=== PATIENT | female | born 1955 | race African-American/Black ===

== ENCOUNTER 2020-05-27 07:00 | Day surgery (SDC) | payer MEDICARE ==
[~2020-05-27] VITALS: Ht 149.9 cm; Wt 56.6 kg
[2020-05-27 07:33] VITALS: BP 93/60
[2020-05-27] MEDS ORDERED: ATOR20TA37 PO (07:37)
[2020-05-27] MEDS ORDERED: CLOP75TA PO (07:37)
[2020-05-27] MEDS ORDERED: ASPI81TA45 PO (07:37)
[2020-05-27] MEDS ORDERED: HYDR25TA6 PO (07:37)
[2020-05-27] MEDS ORDERED: LISI-170 PO (07:37)
[2020-05-27 08:06] LABS: BASOPHILS % (AUTO) 1 % (0-1); EOSINOPHILS % (AUTO) 2 % (1-7); LYMPHOCYTES % (AUTO) 30 % (22-44); MEAN CORPUSCULAR HEMOGLOBIN 30.8 pg (27.0-34.8); MEAN CORPUSCULAR HGB CONC 32.9 g/dL (32.4-35.8); MEAN PLATELET VOLUME 7.8 fL (7.4-10.4); MONOCYTES % (AUTO) 6 % (2-9); NEUTROPHILS % (AUTO) 62 % (42-75); PLATELET COUNT 302 x10^3/uL (130-400); RED BLOOD COUNT 4.35 x10^6/uL (3.82-5.3); RED CELL DISTRIBUTION WIDTH 14.6 % (9.6-15.2)
[2020-05-27 08:08] LABS: MD NO
[2020-05-27 08:15] LABS: ALBUMIN 3.9 g/dL (3.4-5.0); ANION GAP 7 mmol/L (5-15); CALCIUM 8.8 mg/dL (8.5-10.1); CHLORIDE 109 mmol/L (98-107)
[2020-05-27 08:20] LABS: ALANINE AMINOTRANSFERASE 25 U/L (12-78); ALKALINE PHOSPHATASE 65 U/L (45-117); BILIRUBIN,TOTAL 0.4 mg/dL (0.2-1.0); CREATININE 1.21 mg/dL (0.55-1.02); TOTAL PROTEIN 7.6 g/dL (6.4-8.2)
[2020-05-27] MEDS ORDERED: FENTANYL PF 100 MCG/2ML ONE ×2 (08:42→08:43)
[2020-05-27] MEDS ORDERED: NALOXONE 1 MG/ML, 2ML ONE (08:43)
[2020-05-27] MEDS ORDERED: MIDAZOLAM 1 MG/ML, 5ML ONE (08:43)
[2020-05-27] MEDS ORDERED: PROTAMINE SULFATE 10 MG/ML, 25ML ONE (08:43)
[2020-05-27] MEDS ORDERED: FLUMAZENIL 0.1 MG/1 ML, 5ML ONE (08:43)
[2020-05-27] MEDS ORDERED: LIDOCAINE 1%, 10ML ONE (08:43)
[2020-05-27] MEDS ORDERED: HEPARIN 1,000 UNITS/ML, 10ML ONE (08:43)
[2020-05-27] MEDS ORDERED: VISIPAQUE 270 MG/ML, 50ML BOTTLE ONE (10:00)
== END 2020-05-27 11:40 | disposition home or self-care (01) ==
LOC: OUT 07:00
PROVIDERS: ATTEND Surgery
DX: I70.211 Atherosclerosis of native arteries of extremities with intermittent claudication, right leg (principal); F32.9 Major depressive disorder, single episode, unspecified; F41.9 Anxiety disorder, unspecified; I10 Essential (primary) hypertension; Z98.51 Tubal ligation status; Z98.890 Other specified postprocedural states; F17.210 Nicotine dependence, cigarettes, uncomplicated; Z79.82 Long term (current) use of aspirin; Z79.899 Other long term (current) drug therapy
CPT/HCPCS: 36246; 36415; 75625; 75716; 80053; 85025; 99156; 99157; C1751; C1760; C1769; C1894; J2250; J3010; Q9966; 75710; 76937; J1644; J2720; J2310

== ENCOUNTER → 2020-07-16 | Outpatient (CLI) | payer MEDICARE ==
[~2020-07-16] MED LIST: ASPI81TA45 PO; ATOR20TA37 PO; CLOP75TA PO; HYDR25TA6 PO; LISI-170 PO; NAPR-872 PO
[2020-07-16 16:22] LABS: BASOPHILS % (AUTO) 1 % (0-1); EOSINOPHILS % (AUTO) 2 % (1-7); LYMPHOCYTES % (AUTO) 37 % (22-44); MEAN CORPUSCULAR HEMOGLOBIN 31.1 pg (27.0-34.8); MEAN CORPUSCULAR HGB CONC 33.4 g/dL (32.4-35.8); MEAN PLATELET VOLUME 8.1 fL (7.4-10.4); MONOCYTES % (AUTO) 7 % (2-9); NEUTROPHILS % (AUTO) 53 % (42-75); PLATELET COUNT 282 x10^3/uL (130-400); RED BLOOD COUNT 4.25 x10^6/uL (3.82-5.3)
[2020-07-16 16:29] LABS: ALBUMIN 3.8 g/dL (3.4-5.0); ANION GAP 6 mmol/L (5-15); CALCIUM 8.9 mg/dL (8.5-10.1); CHLORIDE 109 mmol/L (98-107); MD NO
[2020-07-16 16:32] LABS: ALANINE AMINOTRANSFERASE 36 U/L (12-78); ALKALINE PHOSPHATASE 59 U/L (45-117); BILIRUBIN,TOTAL 0.2 mg/dL (0.2-1.0); CREATININE 0.95 mg/dL (0.55-1.02); TOTAL PROTEIN 7.5 g/dL (6.4-8.2)
== END | disposition home or self-care (01) ==
LOC: STAR 14:56
PROVIDERS: ATTEND Surgery
DX: Z01.818 Encounter for other preprocedural examination (principal); M41.85 Other forms of scoliosis, thoracolumbar region; Z20.822 Contact with and (suspected) exposure to COVID-19
CPT/HCPCS: 36415; 71046; 80053; 85025; 93005; U0003

== ENCOUNTER 2020-07-22 05:21 | Inpatient (IN) | payer MEDICARE ==
[~2020-07-22] VITALS: Ht 149.9 cm; Wt 61.2 kg
[2020-07-22] MEDS ORDERED: LACTATED RINGERS 1,000 ML IV SCH (06:00)
[2020-07-22] MEDS ORDERED: CHLORHEXIDINE 15 ML UDC PO ONE (06:00)
[2020-07-22 06:01] VITALS: BP 103/63
[2020-07-22] MEDS ORDERED: BUPIVACAINE/PF 0.5% ONE (06:59)
[2020-07-22] MEDS ORDERED: THROMBIN 20,000 UNIT VIAL TP ONE (06:59)
[2020-07-22] MEDS ORDERED: EPINEPHRINE 1 MG/ML, 1ML ONE (06:59)
[2020-07-22] MEDS ORDERED: PROTAMINE SULFATE 10 MG/ML, 25ML ONE (06:59)
[2020-07-22] MEDS ORDERED: HEPARIN 1,000 UNITS/ML, 30ML ONE (07:14)
[2020-07-22] MEDS ORDERED: MIDAZOLAM 1 MG/ML, 2ML ONE (07:34)
[2020-07-22] MEDS ORDERED: FENTANYL PF 250 MCG/5ML ONE (07:34)
[2020-07-22] MEDS ORDERED: PHENYLEPHRINE 10 MG/ML ONE (07:38)
[2020-07-22] MEDS ORDERED: ASPIRIN 81 MG TABLET EC PO ONE (08:00)
[2020-07-22] MEDS ORDERED: HEPARIN 1,000 UNITS/ML, 30ML IVPush ONE (08:12)
[2020-07-22] MEDS ORDERED: ACETAMINOPHEN 325 MG TABLET PO PRN (08:30)
[2020-07-22] MEDS ORDERED: OXYcodone 5 MG/5 ML ORAL.SOL UDC PO PRN (08:30)
[2020-07-22] MEDS ORDERED: METHOCARBAMOL 1,000 MG in DEXTROSE 5% 100 ML IV PRN (08:30)
[2020-07-22] MEDS ORDERED: HYDROmorphone 1 MG/ML, 1ML INJ IVPush PRN (08:30)
[2020-07-22] MEDS ORDERED: LABETALOL 5MG/ML, 20ML IV PRN (08:30)
[2020-07-22] MEDS ORDERED: ONDANSETRON 2MG/ML, 2ML IVPush PRN (08:30)
[2020-07-22] MEDS ORDERED: ALBUTEROL SULFATE 2.5 MG/3 ML NPPB PRN (08:30)
[2020-07-22] MEDS ORDERED: PROMETHAZINE 25 MG/ML, 1ML IVPush PRN (08:30)
[2020-07-22] MEDS ORDERED: hydrALAzine 20 MG/ML, 1ML IV PRN (08:30)
[2020-07-22] MEDS ORDERED: LORazepam 2 MG/ML, 1ML IVPush PRN (08:30)
[2020-07-22] MEDS ORDERED: PROMETHAZINE 25 MG SUPP PR PRN (08:30)
[2020-07-22] MEDS ORDERED: SUCCINYLCHOLINE 20 MG/ML, 10ML ONE (09:36)
[2020-07-22] MEDS ORDERED: NEOSTIGMINE 1 MG/ML, 10ML ONE (09:36)
[2020-07-22] MEDS ORDERED: ONDANSETRON 2MG/ML, 2ML ONE (09:36)
[2020-07-22] MEDS ORDERED: ROCURONIUM 10MG/ML,5ML ONE (09:36)
[2020-07-22] MEDS ORDERED: GLYCOPYRROLATE 0.2MG/1ML, 5ML ONE (09:36)
[2020-07-22] MEDS ORDERED: CEFAZOLIN 1,000 MG ONE (09:36)
[2020-07-22] MEDS ORDERED: PROPOFOL 10 MG/ML, 20ML ONE (09:36)
[2020-07-22] MEDS ORDERED: DEXAMETHASONE 4 MG/ML, 1ML ONE (09:36)
[2020-07-22] MEDS ORDERED: FENTANYL PF 100 MCG/2ML ONE ×2 (09:36→10:56)
[2020-07-22] MEDS ORDERED: LABETALOL 5MG/ML, 20ML ONE (10:35)
[2020-07-22] MEDS ORDERED: OXYcodone 5 MG/5 ML ORAL.SOL UDC ONE (10:56)
[2020-07-22] MEDS: FENTANYL PF 100 MCG/2ML IV PRN ×2 (10:58→11:06)
[2020-07-22] MEDS: morphine SULFATE 10 MG/ML, 1ML IV PRN (13:28)
[2020-07-22] MEDS ORDERED: ONDANSETRON 2MG/ML, 2ML IV PRN (13:30)
[2020-07-22 14:30] VITALS: BP 147/77
[2020-07-22] MEDS: HYDROcodone/APAP 5/325 TABLET PO PRN ×3 (15:44→20:19)
[2020-07-22] MEDS: NICOTINE 14MG/24 HR PATCH.TD24 TD SCH (20:19)
[2020-07-22] MEDS: LACTATED RINGERS 1,000 ML IV SCH (20:19)
[2020-07-22] MEDS: ATORVASTATIN 40 MG TABLET PO SCH (20:19)
[2020-07-22] MEDS: SODIUM CHLORIDE FLUSH 10ML SYR IVF SCH (20:23)
[2020-07-22 20:41] VITALS: BP 124/54
[2020-07-23] MEDS: morphine SULFATE 10 MG/ML, 1ML IV PRN ×2 (01:19→06:45)
[2020-07-23] MEDS: HYDROcodone/APAP 5/325 TABLET PO PRN ×5 (01:19→20:04)
[2020-07-23 01:25] VITALS: BP 112/66
[2020-07-23 04:38] VITALS: BP 132/73
[2020-07-23] MEDS: HEPARIN 5,000 UNITS/ML, 1ML SQ SCH ×3 (05:29→22:12)
[2020-07-23] MEDS: LACTATED RINGERS 1,000 ML IV SCH (05:32)
[2020-07-23 07:32] VITALS: BP 102/59
[2020-07-23] MEDS: NAPROXEN 250 MG TABLET PO SCH (09:30)
[2020-07-23] MEDS: CLOPIDOGREL 75 MG TABLET PO SCH (09:30)
[2020-07-23] MEDS: ASPIRIN 81 MG TABLET CHEW PO SCH (09:30)
[2020-07-23] MEDS: SODIUM CHLORIDE FLUSH 10ML SYR IVF SCH ×2 (09:31→20:04)
[2020-07-23] MEDS: LISINOPRIL 20 MG TABLET PO SCH (09:31)
[2020-07-23] MEDS: HYDROCHLOROTHIAZIDE 25 MG TABLET PO SCH (09:32)
[2020-07-23 09:38] VITALS: BP 125/61
[2020-07-23 09:53] LABS: BASOPHILS % (AUTO) 1 % (0-1); EOSINOPHILS % (AUTO) 1 % (1-7); LYMPHOCYTES % (AUTO) 14 % (22-44); MEAN CORPUSCULAR HEMOGLOBIN 30.3 pg (27.0-34.8); MEAN CORPUSCULAR HGB CONC 32.7 g/dL (32.4-35.8); MEAN PLATELET VOLUME 7.8 fL (7.4-10.4); MONOCYTES % (AUTO) 8 % (2-9); NEUTROPHILS % (AUTO) 77 % (42-75); PLATELET COUNT 242 x10^3/uL (130-400)
[2020-07-23 10:04] LABS: ALBUMIN 3.2 g/dL (3.4-5.0); ANION GAP 4 mmol/L (5-15); CALCIUM 9.1 mg/dL (8.5-10.1); CHLORIDE 112 mmol/L (98-107); CREATININE 0.86 mg/dL (0.55-1.02)
[2020-07-23 10:07] LABS: MD SCAN
[2020-07-23 14:44] VITALS: BP 102/66
[2020-07-23] MEDS: ATORVASTATIN 40 MG TABLET PO SCH (20:03)
[2020-07-23] MEDS: NICOTINE 14MG/24 HR PATCH.TD24 TD SCH (20:04)
[2020-07-23 20:18] VITALS: BP 116/68
[2020-07-24] MEDS: HYDROcodone/APAP 5/325 TABLET PO PRN ×5 (00:32→19:09)
[2020-07-24 00:35] VITALS: BP 118/71
[2020-07-24 05:34] LABS: BASOPHILS % (AUTO) 1 % (0-1); EOSINOPHILS % (AUTO) 1 % (1-7); LYMPHOCYTES % (AUTO) 20 % (22-44); MEAN CORPUSCULAR HEMOGLOBIN 30.2 pg (27.0-34.8); MEAN CORPUSCULAR HGB CONC 32.3 g/dL (32.4-35.8); MEAN PLATELET VOLUME 8.2 fL (7.4-10.4); MONOCYTES % (AUTO) 8 % (2-9); NEUTROPHILS % (AUTO) 71 % (42-75); PLATELET COUNT 234 x10^3/uL (130-400); RED BLOOD COUNT 3.43 x10^6/uL (3.82-5.3); RED CELL DISTRIBUTION WIDTH 15.3 % (9.6-15.2)
[2020-07-24 05:35] LABS: MD NO
[2020-07-24] MEDS: HEPARIN 5,000 UNITS/ML, 1ML SQ SCH ×3 (05:44→21:18)
[2020-07-24] MEDS: morphine SULFATE 10 MG/ML, 1ML IV PRN ×4 (06:20→21:19)
[2020-07-24] MEDS: LISINOPRIL 20 MG TABLET PO SCH (08:08)
[2020-07-24] MEDS: ASPIRIN 81 MG TABLET CHEW PO SCH (08:08)
[2020-07-24] MEDS: CLOPIDOGREL 75 MG TABLET PO SCH (08:08)
[2020-07-24] MEDS: HYDROCHLOROTHIAZIDE 25 MG TABLET PO SCH (08:08)
[2020-07-24] MEDS: NAPROXEN 250 MG TABLET PO SCH (08:08)
[2020-07-24] MEDS: SODIUM CHLORIDE FLUSH 10ML SYR IVF SCH ×2 (08:09→21:18)
[2020-07-24 08:18] VITALS: BP 105/65
[2020-07-24 12:07] VITALS: BP 112/65
[2020-07-24] MEDS ORDERED: BISACODYL 10 MG SUPP PR PRN (12:30)
[2020-07-24] MEDS: DOCUSATE 100 MG CAPSULE PO SCH (13:01)
[2020-07-24 19:13] VITALS: BP 95/57
[2020-07-24] MEDS: NICOTINE 14MG/24 HR PATCH.TD24 TD SCH (21:17)
[2020-07-24] MEDS: ATORVASTATIN 40 MG TABLET PO SCH (21:17)
[2020-07-24] MEDS: SENNA/DOCUSATE TABLET PO SCH (21:18)
[2020-07-25] VITALS (12 sets, daily range): BP systolic 70–126; BP diastolic 45–79
[2020-07-25] MEDS ORDERED: SODIUM CHLORIDE 0.9% 1,000 ML IVBOLUS PRN ×2 (01:30)
[2020-07-25 02:58] LABS: BASOPHILS % (AUTO) 1 % (0-1); EOSINOPHILS % (AUTO) 1 % (1-7); LYMPHOCYTES % (AUTO) 19 % (22-44); MEAN CORPUSCULAR HEMOGLOBIN 30.4 pg (27.0-34.8); MEAN CORPUSCULAR HGB CONC 33.1 g/dL (32.4-35.8); MEAN PLATELET VOLUME 8.2 fL (7.4-10.4); MONOCYTES % (AUTO) 9 % (2-9); NEUTROPHILS % (AUTO) 70 % (42-75); PLATELET COUNT 234 x10^3/uL (130-400); RED BLOOD COUNT 3.57 x10^6/uL (3.82-5.3); RED CELL DISTRIBUTION WIDTH 15.1 % (9.6-15.2)
[2020-07-25 02:59] LABS: MD NO
[2020-07-25] MEDS: morphine SULFATE 10 MG/ML, 1ML IV PRN (03:00)
[2020-07-25 03:06] LABS: INTERNATIONAL NORMALIZED RATIO 1.07 (0.93-1.1); PROTHROMBIN TIME 11.4 Seconds (9.6-11.5)
[2020-07-25 03:08] LABS: ANION GAP 4 mmol/L (5-15); CALCIUM 8.7 mg/dL (8.5-10.1); CHLORIDE 109 mmol/L (98-107)
[2020-07-25 03:11] LABS: TROPONIN I < 0.015 ng/mL (0.000-0.045)
[2020-07-25] MEDS: HEPARIN 5,000 UNITS/ML, 1ML SQ SCH ×3 (05:37→21:51)
[2020-07-25] MEDS: HYDROcodone/APAP 5/325 TABLET PO PRN ×4 (05:42→20:29)
[2020-07-25] MEDS: HYDROCHLOROTHIAZIDE 25 MG TABLET PO SCH (08:25)
[2020-07-25] MEDS: DOCUSATE 100 MG CAPSULE PO SCH (08:26)
[2020-07-25] MEDS: CLOPIDOGREL 75 MG TABLET PO SCH (08:26)
[2020-07-25] MEDS: ASPIRIN 81 MG TABLET CHEW PO SCH (08:26)
[2020-07-25] MEDS: SODIUM CHLORIDE FLUSH 10ML SYR IVF SCH ×2 (08:29→20:30)
[2020-07-25] MEDS: NAPROXEN 250 MG TABLET PO SCH (08:40)
[2020-07-25] MEDS: LISINOPRIL 20 MG TABLET PO SCH (08:41)
[2020-07-25] MEDS ORDERED: OMNIPAQUE 350 MG/ML, 75ML BOTTLE ONE (12:15)
[2020-07-25] MEDS ORDERED: LACTATED RINGERS 1,000 ML IV SCH (15:00)
[2020-07-25] MEDS: MAGNESIUM HYDROXIDE 8%, 30ML UDC PO PRN (15:23)
[2020-07-25] MEDS: NICOTINE 14MG/24 HR PATCH.TD24 TD SCH (20:29)
[2020-07-25] MEDS: SENNA/DOCUSATE TABLET PO SCH (20:29)
[2020-07-25] MEDS: ATORVASTATIN 40 MG TABLET PO SCH (20:30)
[2020-07-26] VITALS (8 sets, daily range): BP systolic 97–117; BP diastolic 61–75
[2020-07-26] MEDS: HYDROcodone/APAP 5/325 TABLET PO PRN ×4 (00:04→20:32)
[2020-07-26] MEDS: MAGNESIUM HYDROXIDE 8%, 30ML UDC PO PRN (02:45)
[2020-07-26 04:34] LABS: BASOPHILS % (AUTO) 1 % (0-1); EOSINOPHILS % (AUTO) 3 % (1-7); LYMPHOCYTES % (AUTO) 27 % (22-44); MEAN CORPUSCULAR HEMOGLOBIN 30.5 pg (27.0-34.8); MEAN CORPUSCULAR HGB CONC 33.1 g/dL (32.4-35.8); MEAN PLATELET VOLUME 8.2 fL (7.4-10.4); MONOCYTES % (AUTO) 7 % (2-9); NEUTROPHILS % (AUTO) 62 % (42-75); PLATELET COUNT 259 x10^3/uL (130-400); RED BLOOD COUNT 3.26 x10^6/uL (3.82-5.3); RED CELL DISTRIBUTION WIDTH 14.8 % (9.6-15.2)
[2020-07-26 04:36] LABS: MD NO
[2020-07-26 04:44] LABS: % IRON SATURATION 12 % (20-55); ANION GAP 4 mmol/L (5-15); CALCIUM 8.6 mg/dL (8.5-10.1); CHLORIDE 107 mmol/L (98-107); CHOLESTEROL, TOTAL 116 mg/dL (140-239); CREATININE 0.87 mg/dL (0.55-1.02); IRON LEVEL 25 mcg/dL (50-170); TOTAL IRON BINDING CAPACITY 211 mcg/dL (250-450)
[2020-07-26 04:55] LABS: CHOL/HDL RATIO 2.7; HDL CHOL % 37 % (28-40); HDL CHOLESTEROL (DIRECT) 43 mg/dL (40-60); LDL CHOLESTEROL,CALCULATED 55 mg/dL (54-169); LDL/HDL RATIO 1.3 (0.5-3.0); TRANSFERRIN 143 mg/dL (200-360); TRIGLYCERIDES 88 mg/dL (50-200); VLDL CHOLESTEROL 18 mg/dL (0-25)
[2020-07-26] MEDS: HEPARIN 5,000 UNITS/ML, 1ML SQ SCH ×3 (05:15→20:32)
[2020-07-26] MEDS: ASPIRIN 81 MG TABLET CHEW PO SCH (09:01)
[2020-07-26] MEDS: DOCUSATE 100 MG CAPSULE PO SCH (09:01)
[2020-07-26] MEDS: NAPROXEN 250 MG TABLET PO SCH (09:01)
[2020-07-26] MEDS: CLOPIDOGREL 75 MG TABLET PO SCH (09:01)
[2020-07-26] MEDS: SODIUM CHLORIDE FLUSH 10ML SYR IVF SCH ×2 (09:02→20:31)
[2020-07-26] MEDS: FERROUS GLUCONATE 324 MG TABLET PO SCH (16:11)
[2020-07-26] MEDS: NICOTINE 14MG/24 HR PATCH.TD24 TD SCH (20:31)
[2020-07-26] MEDS: ATORVASTATIN 40 MG TABLET PO SCH (20:32)
[2020-07-27] MEDS: HYDROcodone/APAP 5/325 TABLET PO PRN ×2 (01:29→08:20)
[2020-07-27 01:32] VITALS: BP 104/65
[2020-07-27] MEDS: HEPARIN 5,000 UNITS/ML, 1ML SQ SCH (04:34)
[2020-07-27 06:45] VITALS: BP 112/66
[2020-07-27] MEDS: FERROUS GLUCONATE 324 MG TABLET PO SCH (08:00)
[2020-07-27] MEDS: CLOPIDOGREL 75 MG TABLET PO SCH (08:19)
[2020-07-27] MEDS: DOCUSATE 100 MG CAPSULE PO SCH (08:19)
[2020-07-27] MEDS: ASPIRIN 81 MG TABLET CHEW PO SCH (08:19)
[2020-07-27] MEDS: SODIUM CHLORIDE FLUSH 10ML SYR IVF SCH (08:21)
[2020-07-27] MEDS: NAPROXEN 250 MG TABLET PO SCH (09:00)
[2020-07-27] MEDS ORDERED: DOCU-131 PO (09:25)
[2020-07-27] MEDS ORDERED: LISI-170 PO (09:25)
[2020-07-27] MEDS ORDERED: HYDR-1067 PO (09:25)
[2020-07-27] MEDS ORDERED: HYDR25TA6 PO (09:25)
[2020-07-27] MEDS ORDERED: FERR325T16 PO (09:25)
[2020-07-27] MEDS ORDERED: NICO-486 TD (09:28)
[2020-07-27 13:15] VITALS: BP 108/61
[2020-07-28] MEDS ORDERED: ASPIRIN 81 MG TABLET EC PO SCH (09:00)
== END 2020-07-27 14:56 | disposition home or self-care (01) | DRG 254 ==
LOC: ORIP 05:21 → EDSTATUS 07:30 → 4NE 12:19 → 4WST 07-25 02:45
PROVIDERS: ADMIT Surgery; ATTEND Surgery
PROC: 041K0JL Bypass Right Femoral Artery to Popliteal Artery with Synthetic Substitute, Open Approach (ICD-10-PCS; principal; 2020-07-22 07:30)
DX: I70.221 Atherosclerosis of native arteries of extremities with rest pain, right leg (principal); I95.9 Hypotension, unspecified; D64.9 Anemia, unspecified; D72.829 Elevated white blood cell count, unspecified; I49.3 Ventricular premature depolarization; I25.10 Atherosclerotic heart disease of native coronary artery without angina pectoris; F12.90 Cannabis use, unspecified, uncomplicated; F17.210 Nicotine dependence, cigarettes, uncomplicated; F41.9 Anxiety disorder, unspecified; I10 Essential (primary) hypertension; Z79.82 Long term (current) use of aspirin; Z79.899 Other long term (current) drug therapy; Z82.49 Family history of ischemic heart disease and other diseases of the circulatory system; Z83.2 Family history of diseases of the blood and blood-forming organs and certain disorders involving the immune mechanism; Z98.51 Tubal ligation status; Z88.2 Allergy status to sulfonamides
CPT/HCPCS: 36415; 71045; 71275; 80048; 80061; 82040; 82728; 83540; 83550; 83735; 83880; 84443; 84466; 84484; 85025; 85347; 85610; 86850; 86900; 93005; 93306; G0378; J0171; J0690; J1100; J1644; J2250; J2405; J2704; J2710; J2720; J3010; Q9967; C1768; J0330; J2270; J2370; J7120